=== PATIENT | female | born 1975 | race Caucasian/White ===

== ENCOUNTER 2016-10-17 23:59 | Emergency (ER) | payer MEDICAID ==
[2016-10-18 03:41] VITALS: BP 130/80
== END 2016-10-18 03:41 | disposition home or self-care (01) ==
LOC: ED 23:59
DX: N63 Unspecified lump in breast (principal); N64.4 Mastodynia

== ENCOUNTER 2017-01-09 11:19 | Emergency (ER) | payer OTHER ==
[~2017-01-09] VITALS: Ht 154.9 cm; Wt 81.6 kg
[2017-01-09 11:29] VITALS: BP 114/64
== END 2017-01-09 13:10 | disposition home or self-care (01) ==
LOC: ED 11:19
DX: H60.91 Unspecified otitis externa, right ear (principal); Z85.3 Personal history of malignant neoplasm of breast

== ENCOUNTER 2017-01-13 00:39 | Emergency (ER) | payer MEDICAID ==
[~2017-01-13] VITALS: Ht 154.9 cm; Wt 80.9 kg
[2017-01-13 01:25] LABS: BASOPHIL % 0.5 % (0-2); PLATELET COUNT 210 x10^3mcL (130-400)
[2017-01-13 01:30] LABS: CALCIUM 8.7 mg/dL (8.5-10.1); CARBON DIOXIDE 24.7 mmol/L (21-32); CREATININE SERUM 1.1 mg/dL (0.6-1.0)
[2017-01-13 01:37] LABS: ALBUMIN 3.6 g/dL (3.4-5.0); BILIRUBIN TOTAL 0.65 mg/dL (0.20-1.00); TOTAL PROTEIN, SERUM 7.9 g/dL (6.4-8.2)
[2017-01-13 05:15] VITALS: BP 105/62
== END 2017-01-13 05:15 | disposition home or self-care (01) ==
LOC: ED 00:39
PROVIDERS: Emergency Medicine
DX: R06.00 Dyspnea, unspecified (principal); Z79.899 Other long term (current) drug therapy
CPT/HCPCS: J2060; J7030; Q0092; Q9967

== ENCOUNTER 2017-02-16 18:57 | Emergency (ER) | payer OTHER ==
[2017-02-16 21:06] VITALS: BP 119/78
== END 2017-02-16 21:06 | disposition home or self-care (01) ==
LOC: ED 18:57
DX: Z76.0 Encounter for issue of repeat prescription (principal); F41.9 Anxiety disorder, unspecified; G47.00 Insomnia, unspecified

== ENCOUNTER 2017-03-07 09:26 | Emergency (ER) | payer OTHER ==
[~2017-03-07] VITALS: Ht 154.9 cm; Wt 77.7 kg
[2017-03-07 11:08] VITALS: BP 120/64
== END 2017-03-07 11:08 | disposition home or self-care (01) ==
LOC: ED 09:26
DX: K02.9 Dental caries, unspecified (principal); Z85.3 Personal history of malignant neoplasm of breast
CPT/HCPCS: J1885

== ENCOUNTER 2017-03-27 07:20 | Emergency (ER) | payer OTHER ==
[~2017-03-27] VITALS: Ht 154.9 cm; Wt 77.6 kg
[2017-03-27 08:49] VITALS: BP 120/70
== END 2017-03-27 08:49 | disposition home or self-care (01) ==
LOC: ED 07:20
DX: R04.0 Epistaxis (principal)

== ENCOUNTER 2017-03-30 07:44 | Inpatient (IN) | payer OTHER ==
[~2017-03-30] VITALS: Ht 154.9 cm; Wt 77.1 kg
[2017-03-30 08:48] LABS: PLATELET COUNT 162 x10^3mcL (130-400)
[2017-03-30 08:50] LABS: RED CELL DISTRIBUTION WIDTH 20.9 % (11.5-14.5)
[2017-03-30 09:11] LABS: CALCIUM 9.1 mg/dL (8.5-10.1); CARBON DIOXIDE 27.6 mmol/L (21-32); CREATININE SERUM 1.1 mg/dL (0.6-1.0)
[2017-03-30 09:15] LABS: ALBUMIN 3.6 g/dL (3.4-5.0); BILIRUBIN TOTAL 1.1 mg/dL (0.20-1.00); TOTAL PROTEIN, SERUM 7.2 g/dL (6.4-8.2)
[2017-03-30 09:51] LABS: rbc morphology (normal/abnorm) ABNORMAL (NORMAL)
[2017-03-30 10:19] LABS: microscopic required? NO
[2017-03-30 10:41] LABS: UA SPECIFIC GRAVITY <=1.005 (1.005-1.035); urine erythrocyte NEGATIVE (NEGATIVE)
[2017-03-30] MEDS ORDERED: LORAZEPAM1 MG PO (10:44)
[2017-03-30] MEDS ORDERED: APAP/HYDROCODON1 T15 PO (10:46)
[2017-03-30] MEDS ORDERED: ZOFRAN8 MG PO (10:48)
[2017-03-30 11:04] LABS: BAND NEUTROPHIL 13 % (0-10); METAMYELOCTE 6 % (0-2); MONOCYTE 14 % (0-7); MYELOCYTE 2 % (0-2); SEGMENTED NEUTROPHILS 51 % (37-75)
[2017-03-30 11:10] LABS: T3 TOTAL 1.11 ng/mL
[2017-03-30 11:23] LABS: CHOLESTEROL/HDL RATIO 3.8; MAGNESIUM 1.6 mg/dL (1.8-2.4); PHOSPHOROUS 2.6 mg/dL (2.5-4.9)
[2017-03-30 11:33] LABS: FREE THYROXINE INDEX 3.5 ug/dL (1.4-4.5); T4(THYROXINE) 10.6 ug/dL (4.7-13.3)
[2017-03-30 11:42] VITALS: BP 93/42
[2017-03-30 12:40] VITALS: BP 105/57
[2017-03-30 14:46] LABS: AMPHETAMINE QUAL UR NONE DETECTED (NEG <=1000)
[2017-03-30] MEDS ORDERED: PROTONIX40 MG PO (14:58)
[2017-03-30 20:21] VITALS: BP 104/60
[2017-03-30 22:03] VITALS: BP 90/49
[2017-03-31 06:37] VITALS: BP 110/62
[2017-03-31 06:59] LABS: CALCIUM 8.4 mg/dL (8.5-10.1); CARBON DIOXIDE 29.9 mmol/L (21-32); CHLORIDE SERUM 109 mmol/L (98-107); CREATININE SERUM 0.8 mg/dL (0.6-1.0); GFR1 > 60 mL/min; GLUCOSE SERUM 97 mg/dL (74-106); MAGNESIUM 1.8 mg/dL (1.8-2.4); PHOSPHOROUS 3.1 mg/dL (2.5-4.9); POTASSIUM SERUM 3.9 mmol/L (3.5-5.1); SODIUM SERUM 145 mmol/L (136-145)
[2017-03-31 07:17] LABS: PLATELET COUNT 114 x10^3mcL (130-400); RED CELL DISTRIBUTION WIDTH 21.2 % (11.5-14.5)
[2017-03-31 09:40] LABS: BAND NEUTROPHIL 15 % (0-10); BASOPHIL 0 % (0-2); METAMYELOCTE 3 % (0-2); MONOCYTE 13 % (0-7); MYELOCYTE 2 % (0-2); SEGMENTED NEUTROPHILS 52 % (37-75)
[2017-03-31 09:41] LABS: PLATELET MORPHOLOGY PLATELETS NORMAL; rbc morphology (normal/abnorm) ABNORMAL (NORMAL)
[2017-03-31 10:43] VITALS: BP 102/48
[2017-03-31 14:46] VITALS: BP 102/51
[2017-03-31 17:28] VITALS: BP 113/51
[2017-03-31 21:15] VITALS: BP 108/52
[2017-04-01 06:10] VITALS: BP 115/62
[2017-04-01 06:57] LABS: CALCIUM 8.5 mg/dL (8.5-10.1); CARBON DIOXIDE 28.8 mmol/L (21-32); CHLORIDE SERUM 109 mmol/L (98-107); CREATININE SERUM 0.7 mg/dL (0.6-1.0); GFR1 > 60 mL/min; GLUCOSE SERUM 97 mg/dL (74-106); POTASSIUM SERUM 3.3 mmol/L (3.5-5.1); SODIUM SERUM 143 mmol/L (136-145)
[2017-04-01 07:12] LABS: PLATELET COUNT 96 x10^3mcL (130-400); RED CELL DISTRIBUTION WIDTH 20.9 % (11.5-14.5)
[2017-04-01 10:14] VITALS: BP 111/56
[2017-04-01 11:19] VITALS: Ht 154.9 cm; Wt 77.1 kg
[2017-04-01 12:53] LABS: BAND NEUTROPHIL 16 % (0-10); METAMYELOCTE 1 % (0-2); MONOCYTE 3 % (0-7); MYELOCYTE 1 % (0-2); SEGMENTED NEUTROPHILS 71 % (37-75)
[2017-04-01 12:54] LABS: rbc morphology (normal/abnorm) ABNORMAL (NORMAL); tear drop cell (dacryocyte) 1+
[2017-04-01 14:22] VITALS: BP 107/58
[2017-04-01 18:03] VITALS: BP 97/52
[2017-04-01 20:52] VITALS: BP 99/53
[2017-04-02 05:19] VITALS: BP 103/47
[2017-04-02 06:56] LABS: PLATELET COUNT 95 x10^3mcL (130-400); RED CELL DISTRIBUTION WIDTH 20.9 % (11.5-14.5)
[2017-04-02 07:00] LABS: CALCIUM 8.8 mg/dL (8.5-10.1); CARBON DIOXIDE 28.9 mmol/L (21-32); CHLORIDE SERUM 107 mmol/L (98-107); CREATININE SERUM 0.7 mg/dL (0.6-1.0); GFR1 > 60 mL/min; GLUCOSE SERUM 91 mg/dL (74-106); POTASSIUM SERUM 3.9 mmol/L (3.5-5.1); SODIUM SERUM 144 mmol/L (136-145)
[2017-04-02 08:30] VITALS: BP 107/45
[2017-04-02] MEDS ORDERED: LEVOFLOXACIN500 M1 PO (10:44)
[2017-04-02] MEDS ORDERED: ACIDOPHILUS LA1 EACH PO (10:45)
[2017-04-02] MEDS ORDERED: [UNRECOGNIZED DRUG - OTHER] PO (10:48)
[2017-04-02 11:03] VITALS: BP 107/45
[2017-04-02 11:12] LABS: BAND NEUTROPHIL 14 % (0-10); BASOPHIL 0 % (0-2); METAMYELOCTE 1 % (0-2); MONOCYTE 5 % (0-7); MYELOCYTE 1 % (0-2); SEGMENTED NEUTROPHILS 69 % (37-75)
[2017-04-02 11:13] LABS: PLATELET MORPHOLOGY PLATELETS DECREASED; rbc morphology (normal/abnorm) ABNORMAL (NORMAL)
[2017-04-02 11:14] LABS: tear drop cell (dacryocyte) 1+
[2017-04-02 13:30] VITALS: BP 107/45
== END 2017-04-02 14:14 | disposition home or self-care (01) | DRG 720 ==
LOC: ED 07:44 → DU 10:04
PROVIDERS: Emergency Medicine; Student in an Organized Health Care Education/Training Program; ADMIT Family Medicine
DX: A41.9 Sepsis, unspecified organism (principal); N17.0 Acute kidney failure with tubular necrosis; R65.21 Severe sepsis with septic shock; C50.911 Malignant neoplasm of unspecified site of right female breast; E87.2 Acidosis; E83.42 Hypomagnesemia; K21.9 Gastro-esophageal reflux disease without esophagitis; E78.5 Hyperlipidemia, unspecified; Z53.29 Procedure and treatment not carried out because of patient's decision for other reasons; R00.0 Tachycardia, unspecified; F41.9 Anxiety disorder, unspecified; Z68.31 Body mass index [BMI] 31.0-31.9, adult; T45.1X5A Adverse effect of antineoplastic and immunosuppressive drugs, initial encounter; Y92.531 Health care provider office as the place of occurrence of the external cause; Z79.899 Other long term (current) drug therapy
CPT/HCPCS: 83880; 84439; J0456; J0696; J2405; J3475; J7030; J7620; Q0092; Q0162

== ENCOUNTER 2017-05-13 05:16 | Emergency (ER) | payer OTHER ==
[~2017-05-13 05:16] MED LIST: ACIDOPHILUS LA1 EACH PO; APAP/HYDROCODON1 T15 PO; LEVOFLOXACIN500 M1 PO; LORAZEPAM1 MG PO; PROTONIX40 MG PO; ZOFRAN8 MG PO; [UNRECOGNIZED DRUG - OTHER] PO
[2017-05-13 05:38] VITALS: BP 131/57
== END 2017-05-13 05:38 | disposition home or self-care (01) ==
LOC: ED 05:16
DX: J02.9 Acute pharyngitis, unspecified (principal)

== ENCOUNTER 2017-08-03 11:24 | Emergency (ER) | payer OTHER ==
[~2017-08-03] VITALS: Ht 154.9 cm; Wt 76.9 kg
[2017-08-03 11:42] VITALS: Ht 154.9 cm; Wt 76.9 kg
[2017-08-03 14:26] VITALS: BP 138/71
== END 2017-08-03 14:53 | disposition home or self-care (01) ==
LOC: ED 11:24
DX: T45.1X5A Adverse effect of antineoplastic and immunosuppressive drugs, initial encounter (principal); R11.10 Vomiting, unspecified; R19.7 Diarrhea, unspecified; Z90.13 Acquired absence of bilateral breasts and nipples; Z90.5 Acquired absence of kidney; X58.XXXA Exposure to other specified factors, initial encounter; Y93.89 Activity, other specified; Y92.89 Other specified places as the place of occurrence of the external cause; Y99.8 Other external cause status
CPT/HCPCS: Q0162

== ENCOUNTER 2018-12-27 20:10 | Emergency (ER) | payer OTHER ==
[~2018-12-27] VITALS: Ht 154.9 cm; Wt 85.3 kg
[2018-12-27 22:08] LABS: BASOPHIL % 0.2 % (0-2); PLATELET COUNT 186 x10^3mcL (130-400); RED CELL DISTRIBUTION WIDTH 13.6 % (11.5-14.5)
[2018-12-27 22:18] LABS: CALCIUM 8.7 mg/dL (8.5-10.1); CARBON DIOXIDE 26.2 mmol/L (21-32); CHLORIDE SERUM 99 mmol/L (98-107); CREATININE SERUM 0.9 mg/dL (0.6-1.0); GFR1 > 60 mL/min; GLUCOSE SERUM 129 mg/dL (74-106); SODIUM SERUM 137 mmol/L (136-145)
[2018-12-27 22:22] LABS: ALBUMIN 3.7 g/dL (3.4-5.0); ALKALINE PHOSPHATASE 132 U/L (46-116); ALT/SGPT 37 U/L (14-59); AST/SGOT 22 U/L (15-37); BILIRUBIN TOTAL 1.05 mg/dL (0.20-1.00); MAGNESIUM 1.7 mg/dL (1.8-2.4); TOTAL PROTEIN, SERUM 7.4 g/dL (6.4-8.2)
[2018-12-27 23:10] LABS: UA SPECIFIC GRAVITY 1.015 (1.005-1.035); microscopic required? YES; urine erythrocyte 2+ (NEGATIVE)
[2018-12-28 01:45] VITALS: BP 114/62
== END 2018-12-28 01:45 | disposition short-term general hospital (02) ==
LOC: ED 20:10
PROVIDERS: Emergency Medicine
DX: R51 Headache (principal); I67.89 Other cerebrovascular disease; N39.0 Urinary tract infection, site not specified; Z85.3 Personal history of malignant neoplasm of breast
CPT/HCPCS: J0696; J1100; J1885; J2405; J3475; J7030; J7060; Q0092

== ENCOUNTER 2019-04-05 16:56 | Emergency (ER) | payer OTHER ==
[~2019-04-05] VITALS: Ht 154.9 cm; Wt 75.7 kg
[2019-04-05 17:01] VITALS: Ht 154.9 cm; Wt 75.7 kg
[2019-04-05 21:08] VITALS: BP 159/83
== END 2019-04-05 21:08 | disposition home or self-care (01) ==
LOC: ED 16:56
DX: J06.9 Acute upper respiratory infection, unspecified (principal); Z85.3 Personal history of malignant neoplasm of breast; Z90.13 Acquired absence of bilateral breasts and nipples
CPT/HCPCS: 87804; J7613; J7644

== ENCOUNTER 2019-04-15 15:24 | Emergency (ER) | payer OTHER ==
[~2019-04-15] VITALS: Ht 154.9 cm; Wt 73.9 kg
[2019-04-15 15:41] VITALS: Ht 154.9 cm; Wt 73.9 kg
[2019-04-15 17:30] LABS: BASOPHIL % 0.3 % (0-2); PLATELET COUNT 164 x10^3mcL (130-400); RED CELL DISTRIBUTION WIDTH 13.8 % (11.5-14.5)
[2019-04-15 17:52] LABS: CALCIUM 9.5 mg/dL (8.5-10.1); CARBON DIOXIDE 33.1 mmol/L (21-32); CHLORIDE SERUM 101 mmol/L (98-107); GFR1 > 60 mL/min; GLUCOSE SERUM 92 mg/dL (74-106); SODIUM SERUM 140 mmol/L (136-145)
[2019-04-15 17:59] LABS: ALBUMIN 3.9 g/dL (3.4-5.0); ALKALINE PHOSPHATASE 80 U/L (46-116); ALT/SGPT 39 U/L (14-59); AST/SGOT 18 U/L (15-37); BILIRUBIN TOTAL 1.5 mg/dL (0.20-1.00); TOTAL PROTEIN, SERUM 7.6 g/dL (6.4-8.2)
[2019-04-15 21:42] VITALS: BP 99/60
== END 2019-04-15 21:42 | disposition home or self-care (01) ==
LOC: ED 15:24
PROVIDERS: Emergency Medicine
DX: R53.1 Weakness (principal); R11.2 Nausea with vomiting, unspecified; R05 Cough; Z98.890 Other specified postprocedural states
CPT/HCPCS: 87804; J2405; J7030; Q0092

== ENCOUNTER 2019-06-19 20:24 | Emergency (ER) | payer OTHER ==
[~2019-06-19] VITALS: Ht 157.5 cm; Wt 68.0 kg
[2019-06-19 20:48] VITALS: Ht 157.5 cm; Wt 68.0 kg
[2019-06-20 00:51] VITALS: BP 105/64
== END 2019-06-20 00:51 | disposition home or self-care (01) ==
LOC: ED 20:24
DX: L60.0 Ingrowing nail (principal); Z98.890 Other specified postprocedural states; Z90.13 Acquired absence of bilateral breasts and nipples

== ENCOUNTER 2019-11-22 04:21 | Inpatient (IN) | payer OTHER ==
[~2019-11-22] VITALS: Ht 154.9 cm; Wt 69.6 kg
[2019-11-22 04:26] VITALS: Ht 154.9 cm; Wt 69.6 kg
[2019-11-22 05:22] LABS: CALCIUM 8.2 mg/dL (8.5-10.1); CARBON DIOXIDE 29.2 mmol/L (21-32); CREATININE SERUM 1.1 mg/dL (0.6-1.0); POTASSIUM SERUM 3.5 mmol/L (3.5-5.1)
[2019-11-22 05:23] LABS: PLATELET COUNT 214 x10^3mcL (130-400)
[2019-11-22 05:27] LABS: BILIRUBIN TOTAL 1.15 mg/dL (0.20-1.00)
[2019-11-22 05:28] LABS: ALBUMIN 2.7 g/dL (3.4-5.0); TOTAL PROTEIN, SERUM 5.3 g/dL (6.4-8.2)
[2019-11-22 05:36] LABS: BAND NEUTROPHIL 3 % (0-10); MONOCYTE 5 % (0-7); SEGMENTED NEUTROPHILS 68 % (37-75); rbc morphology (normal/abnorm) ABNORMAL (NORMAL)
[2019-11-22 05:37] LABS: PLATELET MORPHOLOGY PLATELETS NORMAL
[2019-11-22] MEDS ORDERED: AZELASTINE HYDRO6 ML OU (05:49)
[2019-11-22] MEDS ORDERED: GENTEAL TEARS 015 M1 OU (05:50)
[2019-11-22] MEDS ORDERED: PEPCID AC10 M2 (05:51)
[2019-11-22] MEDS ORDERED: PROMETHAZI6.25 MG/5 (05:52)
[2019-11-22] MEDS ORDERED: ONDANSETRON ODT8 M1 PO (05:53)
[2019-11-22] MEDS ORDERED: COMPAZINE10 M1 PO (05:53)
[2019-11-22] MEDS ORDERED: LOPERAMIDE HCL2 M1 PO (05:54)
[2019-11-22] MEDS ORDERED: COLACE100 MG PO (06:01)
[2019-11-22] MEDS ORDERED: D3 20002000 IU PO (06:01)
[2019-11-22] MEDS ORDERED: LAXATIVE FEMININ5 MG PO (06:02)
[2019-11-22] MEDS ORDERED: PREMIUM DAILY M1 TAB PO (06:02)
[2019-11-22] MEDS ORDERED: PROAIR RES117 MCG/Ac (06:03)
[2019-11-22] MEDS ORDERED: ATI1 PO (06:04)
[2019-11-22] MEDS ORDERED: DEXTENZA (06:05)
[2019-11-22] MEDS ORDERED: MIRTAZAPINE7.5 M1 PO (06:05)
[2019-11-22 07:10] VITALS: BP 108/56
[2019-11-22 07:22] LABS: T3 TOTAL 0.69 ng/mL
[2019-11-22 07:36] LABS: MAGNESIUM 2.1 mg/dL (1.8-2.4); PHOSPHOROUS 3.5 mg/dL (2.5-4.9)
[2019-11-22 07:40] LABS: CHOLESTEROL/HDL RATIO 5.2
[2019-11-22 07:45] LABS: FREE T4 0.91 ng/dL (0.76-1.46); FREE THYROXINE INDEX 2.1 ug/dL (1.4-4.5); T4(THYROXINE) 5.9 ug/dL (4.7-13.3)
[2019-11-22 07:46] VITALS: BP 108/56
[2019-11-22] MEDS ORDERED: ENSURE ACTIVE237 M1 PO (08:25)
[2019-11-22] MEDS ORDERED: PROCHLORPERAZIN10 M1 PO (08:38)
[2019-11-22 08:52] VITALS: BP 107/61
[2019-11-22 12:11] VITALS: BP 101/57
[2019-11-22 16:54] VITALS: BP 95/48
[2019-11-22 20:16] VITALS: BP 98/54
[2019-11-23 06:12] VITALS: BP 109/64
[2019-11-23 08:05] LABS: PLATELET COUNT 175 x10^3mcL (130-400)
[2019-11-23 08:35] LABS: RED CELL DISTRIBUTION WIDTH 23.8 % (11.5-14.5)
[2019-11-23 08:39] LABS: CALCIUM 7.9 mg/dL (8.5-10.1); CARBON DIOXIDE 28.3 mmol/L (21-32); CHLORIDE SERUM 106 mmol/L (98-107); CREATININE SERUM 0.7 mg/dL (0.6-1.0); GFR1 > 60 mL/min; GLUCOSE SERUM 131 mg/dL (74-106); POTASSIUM SERUM 3.8 mmol/L (3.5-5.1); SODIUM SERUM 140 mmol/L (136-145)
[2019-11-23 08:49] LABS: MAGNESIUM 1.9 mg/dL (1.8-2.4); PHOSPHOROUS 3.6 mg/dL (2.5-4.9)
[2019-11-23 09:23] VITALS: BP 91/47
[2019-11-23 13:55] VITALS: BP 102/50
[2019-11-23 13:58] LABS: BAND NEUTROPHIL 3 % (0-10); MONOCYTE 6 % (0-7); SEGMENTED NEUTROPHILS 71 % (37-75); rbc morphology (normal/abnorm) ABNORMAL (NORMAL)
[2019-11-23 13:59] LABS: tear drop cell (dacryocyte) 1+
[2019-11-23 17:45] VITALS: BP 100/61
[2019-11-23 22:36] VITALS: BP 102/62
[2019-11-24 06:04] VITALS: BP 135/82
[2019-11-24 08:28] VITALS: BP 97/52
[2019-11-24 08:36] LABS: CARBON DIOXIDE 25.9 mmol/L (21-32); CHLORIDE SERUM 107 mmol/L (98-107); CREATININE SERUM 0.8 mg/dL (0.6-1.0); GFR1 > 60 mL/min; GLUCOSE SERUM 123 mg/dL (74-106); POTASSIUM SERUM 3.6 mmol/L (3.5-5.1); SODIUM SERUM 142 mmol/L (136-145)
[2019-11-24 09:01] LABS: BASOPHIL % 0.1 % (0-2); PLATELET COUNT 172 x10^3mcL (130-400)
[2019-11-24 10:41] VITALS: BP 99/57
[2019-11-24 13:27] VITALS: BP 99/57
== END 2019-11-24 14:33 | disposition home or self-care (01) | DRG 663 ==
LOC: ED 04:21 → DU 05:39
PROVIDERS: Emergency Medicine; ADMIT Internal Medicine; ATTEND Internal Medicine
PROC: 30233N1 Transfusion of Nonautologous Red Blood Cells into Peripheral Vein, Percutaneous Approach (ICD-10-PCS; principal; 2019-11-22)
DX: D64.81 Anemia due to antineoplastic chemotherapy (principal); E43 Unspecified severe protein-calorie malnutrition; C71.9 Malignant neoplasm of brain, unspecified; N17.9 Acute kidney failure, unspecified; I95.9 Hypotension, unspecified; D61.810 Antineoplastic chemotherapy induced pancytopenia; E86.0 Dehydration; Z85.841 Personal history of malignant neoplasm of brain; Z90.13 Acquired absence of bilateral breasts and nipples; Z90.710 Acquired absence of both cervix and uterus; Z79.899 Other long term (current) drug therapy; Z68.28 Body mass index [BMI] 28.0-28.9, adult
CPT/HCPCS: 83880; 84439; G0378; J1885; J2405; J3535; J7030; J7060; J8540; P9016; Q0092; Q0163